=== PATIENT | female | born 1940 | race Caucasian/White ===

== ENCOUNTER 2017-03-29 11:23 | Observation (INO) | payer OTHER ==
[~2017-03-29] VITALS: Ht 172.7 cm; Wt 82.0 kg
--- NOTE | 2017-03-29 12:01 | DIAGNOSTIC IMAGING REPORT ---
CHEST ONE VIEW PORTABLE CLINICAL HISTORY: Atypical chest pain COMPARISON STUDY: 04/18/2013 FINDINGS: The cardiac and mediastinal contours are normal. There is no evidence of focal pulmonary consolidation. There is no evidence of failure. No pleural effusions are visualized.[ IMPRESSION: No active disease in the chest. Electronically signed by: Garrick Morrison M.D. 03/29/2017 12:00 PM Dictated Date/Time: 03/29/2017 12:00 PM
--- NOTE | 2017-03-29 12:30 | EMERGENCY ROOM VISIT NOTE ---
History Report prepared by Adamaris: Carlos Wilcox Under the Supervision of: Dr. Gaudencio Santana M.D. First contact with patient: 11:35 Chief Complaint: CHEST PAIN Stated Complaint: CHEST, LEFT ARM PAIN History of Present Illness The patient is a 77 year old female who presents to the Emergency Room with complaints of intermittent centralized chest pain beginning a few weeks ago. She states that her pain usually radiates into her back, and occasionally into her arms. She states that the pain rarely radiates into her legs. The patient denies any shortness of breath with her pain. She estimates that the pain is present for 2-10 minutes at a time. She states that her pain is often worsened with exertion and improved with rest. The patient rates her pain as an 8/10 in severity. She states that her episodes of pain have been occurring more frequently recently. She currently does not have pain her chest, but does have pain in her left arm. The patient is scheduled for a stress test in 10 days. She has no personal cardiac history. She notes that she aspirated something a little over a month ago and states that her current pain feels similar to her pain associated with aspiration. She does not believe she coughed up the foreign body. The patient has a history of hyperlipidemia and does not take medication for it. The patient took oral aspirin prior to arrival. Source of History: patient Onset: A few weeks ago Position: chest (centralized) Symptom Intensity: 2-10 minutes long, 8/10 in severity Timing: intermittent Modifying Factors (Worsening): exertion Modifying Factors (Relieving): rest Associated Symptoms: + back pain (radiating from chest), No SOB Note: The patient also complains of occasional pain radiation into her left arm and legs. Review of Systems See HPI for pertinent positives & negatives. A total of 10 systems reviewed and were otherwise negative. Past Medical & Surgical Medical Problems: (1) Herpes zoster (2) Hyperlipidemia Family History No pertinent family history stated. Social History Smoking Status: Never Smoker Marital Status: Occupation Status: retired Current/Historical Medications Scheduled Aspirin (Aspirin Chewable), 81 MG PO DAILY Coenzyme Q10 (Ubidecarenone) (Co Q-10), 1 CAP PO DAILY Fish Oil ([place]-3), 1 CAP PO DAILY Red Yeast Rice Extract (Red Yeast Rice), 1 CAP PO DAILY Scheduled PRN Aspirin (Aspirin Chewable), 324 MG PO UD PRN for CHEST PAIN Allergies Coded Allergies: No Known Allergies (Unverified , 03/29/17) Physical Exam Vital Signs Date Time Temp Pulse Resp B/P (MAP) Pulse Ox O2 Delivery O2 Flow Rate FiO2 03/29/17 13:30 81 16 144/65 98 03/29/17 12:33 72 16 144/94 98 Room Air 03/29/17 12:26 Room Air 03/29/17 12:18 72 03/29/17 11:25 36.7 85 18 183/96 95 Room Air Physical Exam GENERAL: Patient is in no acute distress. HEENT: No acute trauma, normocephalic atraumatic, mucous membranes moist, no nasal congestion, no scleral icterus. NECK: No stridor, no adenopathy, no meningismus, trachea is midline. LUNGS: Clear to auscultation bilaterally, no wheeze, no rhonchi, breath sounds equal. HEART: 2/6 systolic murmur. Regular rate and rhythm. ABDOMEN: Soft, nontender, bowel sounds positive, no hernias, no peritonitis. EXTREMITIES: No cyanosis or edema, full range of motion of all the joints without pain or difficulty, no signs for acute trauma. NEUROLOGIC: Oriented x 3, no acute motor or sensory deficits, no focal weakness. SKIN: No rash, no jaundice, no diaphoresis. Medical Decision & Procedures ER Provider Diagnostic Interpretation: X-ray results as stated below per interpretation by me and the radiologist: CHEST ONE VIEW PORTABLE FINDINGS: The cardiac and mediastinal contours are normal. There is no evidence of focal pulmonary consolidation. There is no evidence of failure. No pleural effusions are visualized.[ IMPRESSION: No active disease in the chest. Electronically signed by: Garrick Morrison M.D. Laboratory Results 03/29/17 12:25 03/29/17 12:25 Test 03/29/17 12:25 Red Blood Count 4.74 M/uL (4.2-5.4) Mean Corpuscular Volume 87.3 fL (80-100) Mean Corpuscular Hemoglobin 29.3 pg (25-34) Mean Corpuscular Hemoglobin Concent 33.6 g/dl (32-36) RDW Standard Deviation 41.2 fL (36.4-46.3) RDW Coefficient of Variation 12.8 % (11.5-14.5) Mean Platelet Volume 9.3 fL (7.4-10.4) Prothrombin Time 10.0 SECONDS (9.0-12.0) Prothromb Time International Ratio 0.9 (0.9-1.1) Activated Partial Thromboplast Time 24.3 SECONDS (21.0-31.0) Partial Thromboplastin Ratio 0.9 Anion Gap 6.0 mmol/L (3-11) Est Creatinine Clear Calc Drug Dose 54.5 ml/min Estimated GFR () 63.8 Estimated GFR (Non- 55.1 BUN/Creatinine Ratio 19.3 (10-20) Calcium Level 8.7 mg/dl (8.5-10.1) Total Bilirubin 0.4 mg/dl (0.2-1) Aspartate Amino Transf (AST/SGOT) 24 U/L (15-37) Alanine Aminotransferase (ALT/SGPT) 43 U/L (12-78) Alkaline Phosphatase 65 U/L (45-117) Troponin I < 0.015 ng/ml (0-0.045) Total Protein 7.0 gm/dl (6.4-8.2) Albumin 3.4 gm/dl (3.4-5.0) Globulin 3.6 gm/dl (2.5-4.0) Albumin/Globulin Ratio 0.9 (0.9-2) Lipase 270 U/L (73-393) Laboratory results reviewed by me. ECG Indication: chest pain Rate (beats per minute): 74 Rhythm: normal sinus Findings: other (LVH. Incomplete RBBB. ) ED Course 1136: The patient was evaluated in room B2. A complete history and physical exam was performed. 1350: Upon reexamination the patient is resting comfortably. I discussed results and treatment plan with the patient. She verbalizes agreement and understanding. The patient will be evaluated for further management. Medical Decision The patient is a 77 year old female who presents to the ED with complaints of intermittent chest pain beginning a few weeks ago. Differential diagnoses considered include cardiac ischemia, aortic dissection, PE, musculoskeletal pain , aspiration, anemia, and electrolyte imbalance. Blood Pressure Screening: Patient was found to have an elevated blood pressure and was referred to their primary doctor for recheck and further treatment. Medication Reconciliation: I attest that I have personally reviewed the patient' s current medication list. There is no leukocytosis or concerning anemia. No significant electrolyte abnormality, kidney failure or hepatitis. There is no coagulopathy. Chest x- ray does not show mediastinal widening, pneumonia or pneumothorax. EKG shows a normal sinus rhythm, no acute ischemia. Cardiac enzyme testing times one is not consistent with acute cardiac injury. The patient had already received oral aspirin, no additional aspirin was given. She was chest pain-free during our evaluation. The patient presents with exertional chest discomfort which is becoming more frequent. Today's episode actually occurred at rest. I discussed her case with the on-call purchasing officer, admission/observation was recommended. I talked with the patient and case management. The on-call hospitalist was consulted. Consults Time Called: 1315 Consulting Physician: Dr. Ruth -Cardiology Returned Call: [phone] Discussed the patient's case. Dr. Flores recommends that the patient be observed and evaluated as an inpatient. Additional Consults: Time Called: 1333 Consulted Physician: Rosalind Valderrama Returned Call: [phone] Additional Comments: Discussed the patient's case. The patient will be evaluated for further management. Impression Primary Impression: Precordial chest pain Scribe Attestation The scribe's documentation has been prepared under my direction and personally reviewed by me in its entirety. I confirm that the note above accurately reflects all work, treatment, procedures, and medical decision making performed by me. Departure Information Dispostion Being Evaluated By Hospitalist Referrals Josefina Sutton DO (PCP) Patient Instructions [facility]
[2017-03-29 12:45] LABS: HEMATOCRIT 41.4 % (37-47); MEAN CELL VOLUME 87.3 fL (80-100); MEAN CORPUSCULAR HEMOGLOBIN 29.3 pg (25-34); MEAN CORPUSCULAR HGB CONC 33.6 g/dl (32-36); MEAN PLATELET VOLUME 9.3 fL (7.4-10.4); PLATELET COUNT 230 K/uL (130-400); RED BLOOD COUNT 4.74 M/uL (4.2-5.4); WHITE BLOOD COUNT 4.41 K/uL (4.8-10.8)
[2017-03-29] MEDS ORDERED: ASPCH81X PO ×2 (12:47)
[2017-03-29] MEDS ORDERED: OMEG10007 PO (12:47)
[2017-03-29] MEDS ORDERED: REDCAP2 PO (12:47)
[2017-03-29] MEDS ORDERED: COEN75CA PO (12:47)
[2017-03-29 12:58] LABS: INR 0.9 (0.9-1.1); PARTIAL THROMBOPLASTIN RATIO 0.9
[2017-03-29 13:07] LABS: ALT/SGPT 43 U/L (12-78); BLOOD UREA NITROGEN 19 mg/dl (7-18); BUN/CREATININE RATIO 19.3 (10-20); CALCIUM 8.7 mg/dl (8.5-10.1); CARBON DIOXIDE 26 mmol/L (21-32); CHLORIDE 110 mmol/L (98-107); GLUCOSE 96 mg/dl (70-99); SODIUM 142 mmol/L (136-145)
[2017-03-29 13:12] LABS: ALB/GLOB RATIO 0.9 (0.9-2); ALKALINE PHOSPHATASE 65 U/L (45-117); AST/SGOT 24 U/L (15-37)
[2017-03-29] MEDS ORDERED: ONDANSETRON INJ 2 MG/ML 2 ML VIAL IV PRN (14:45)
[2017-03-29] MEDS ORDERED: IV FLUIDS COMPLETED PRN (15:00)
--- NOTE | 2017-03-29 16:05 | History and Physical ---
History & Physical Date & Time of Service: Mar 29, 2017 at 15:58 Chief Complaint: Hyperlipidemia, Precordial Chest Pain Primary Care Physician: Josefina Sutton DO History of Present Illness Source: patient, clinic records This is a 77 year old female with a PMH of hyperlipidemia, presents with a few month history of dyspnea on exertion and chest pressure with radiation to the back. She has been following with her primary care and was initially given a z- froilan for possible bronchitis. She did have an episode of aspiration on food in January. She states that that has not been an issue since then. She is concerned because her activity level has gone down considerably since this dyspnea and chest pressure began. She states she was scheduled for an outpatient stress test a few weeks from now, but was told by he primary care to come to the ER with chest pain. This morning, she had some chest pain and took four baby aspirin and came to the ER. She currently has no chest pain/dyspnea. Past Medical/Surgical History Medical Problems: (1) Herpes zoster Status: Resolved (2) Hyperlipidemia Status: Chronic Social History Smoking Status: Never Smoker Marital Status: Occupational Status: retired Multi-Drug Resistant Organisms History of MDRO: No Allergies Coded Allergies: No Known Allergies (Unverified , 03/29/17) Home Medications Scheduled Aspirin (Aspirin Chewable), 81 MG PO DAILY Coenzyme Q10 (Ubidecarenone) (Co Q-10), 1 CAP PO DAILY Fish Oil ([place]-3), 1 CAP PO DAILY Red Yeast Rice Extract (Red Yeast Rice), 1 CAP PO DAILY Scheduled PRN Aspirin (Aspirin Chewable), 324 MG PO UD PRN for CHEST PAIN Review of Systems Constitutional: No fever, No chills, No sweats, No weight loss, No weakness, No fatigue Respiratory: + dyspnea on exertion, No cough, No sputum, No wheezing, No shortness of breath, No dyspnea at rest, No hemoptysis Cardiovascular: + chest pain, No orthopnea, No edema, No palpitations Abdomen: No pain, No nausea, No vomiting, No diarrhea, No constipation Musculoskeletal: No joint pain, No muscle pain Genitourinary - Female: No dysuria, No urinary frequency, No urinary urgency Neurologic: No weakness, No numbness/tingling, No vertigo, No balance problems Psychiatric: No depression symptoms, No anxiety, No insomnia Endocrine: No fatigue Hematologic / Lymphatic: No abnormal bleeding/bruising Integumentary: No rash Allergic / Immunologic: No environmental allergies, No seasonal allergies Physical Exam Vital Signs Date Time Temp Pulse Resp B/P (MAP) Pulse Ox O2 Delivery O2 Flow Rate FiO2 03/29/17 15:21 36.7 99 19 153/99 96 03/29/17 15:15 99 19 03/29/17 15:10 69 14 03/29/17 15:05 74 24 03/29/17 15:00 71 18 03/29/17 14:39 71 16 153/99 96 Room Air 03/29/17 13:30 81 16 144/65 98 03/29/17 12:33 72 16 144/94 98 Room Air 03/29/17 12:26 Room Air 03/29/17 12:18 72 03/29/17 11:25 36.7 85 18 183/96 95 Room Air General Appearance: no apparent distress Head: normocephalic, atraumatic Eyes: normal inspection ENT: hearing grossly normal Neck: supple Respiratory/Chest: chest non-tender, lungs clear, normal breath sounds, no respiratory distress, no accessory muscle use Cardiovascular: regular rate, rhythm, no edema, no murmur Abdomen/GI: normal bowel sounds, non tender, soft Extremities/Musculoskelatal: normal inspection, no calf tenderness, normal capillary refill, no pedal edema, normal range of motion Neurologic/Psych: no motor/sensory deficits, alert, normal mood/affect Skin: normal color Lymphatic: no adenopathy Diagnostics Laboratory Results Results Past 24 Hours Test 03/29/17 12:25 Range/Units White Blood Count 4.41 4.8-10.8 K/uL Red Blood Count 4.74 4.2-5.4 M/uL Hemoglobin 13.9 12.0-16.0 g/dL Hematocrit 41.4 37-47 % Mean Corpuscular Volume 87.3 80-100 fL Mean Corpuscular Hemoglobin 29.3 25-34 pg Mean Corpuscular Hemoglobin Concent 33.6 32-36 g/dl RDW Standard Deviation 41.2 36.4-46.3 fL RDW Coefficient of Variation 12.8 11.5-14.5 % Platelet Count 230 130-400 K/uL Mean Platelet Volume 9.3 7.4-10.4 fL Prothrombin Time 10.0 9.0-12.0 SECONDS Prothromb Time International Ratio 0.9 0.9-1.1 Activated Partial Thromboplast Time 24.3 21.0-31.0 SECONDS Partial Thromboplastin Ratio 0.9 Sodium Level 142 136-145 mmol/L Potassium Level 4.0 3.5-5.1 mmol/L Chloride Level 110 98-107 mmol/L Carbon Dioxide Level 26 21-32 mmol/L Anion Gap 6.0 3-11 mmol/L Blood Urea Nitrogen 19 7-18 mg/dl Creatinine 1.00 0.60-1.20 mg/dl Est Creatinine Clear Calc Drug Dose 54.5 ml/min Estimated GFR () 63.8 Estimated GFR (Non- 55.1 BUN/Creatinine Ratio 19.3 10-20 Random Glucose 96 70-99 mg/dl Calcium Level 8.7 8.5-10.1 mg/dl Total Bilirubin 0.4 0.2-1 mg/dl Aspartate Amino Transf (AST/SGOT) 24 15-37 U/L Alanine Aminotransferase (ALT/SGPT) 43 12-78 U/L Alkaline Phosphatase 65 45-117 U/L Troponin I < 0.015 0-0.045 ng/ml Total Protein 7.0 6.4-8.2 gm/dl Albumin 3.4 3.4-5.0 gm/dl Globulin 3.6 2.5-4.0 gm/dl Albumin/Globulin Ratio 0.9 0.9-2 Lipase 270 73-393 U/L Diagnostic Radiology CHEST ONE VIEW PORTABLE CLINICAL HISTORY: Atypical chest pain COMPARISON STUDY: 04/18/2013 FINDINGS: The cardiac and mediastinal contours are normal. There is no evidence of focal pulmonary consolidation. There is no evidence of failure. No pleural effusions are visualized.[ IMPRESSION: No active disease in the chest. EKG Normal sinus rhythm Left axis deviation Incomplete right bundle branch block Minimal voltage criteria for LVH, may be normal variant Impression Assessment and Plan This is a 77 year old female with a PMH of hyperlipidemia presents with chest pain and dyspnea on exertion Chest Pain r/o ACS initial set of enzymes negative EKG with some left axis deviation will monitor in tele start aspirin 81mg daily start Lipitor (she was supposed to start this as outpatient) trend enzymes repeat EKG in AM check echo cardiology consultation for possible stress test in AM HLD started Lipitor, was to start this as outpatient check lipid panel in AM DVT ppx Lovenox FULL CODE VTE Prophylaxis VTE Risk Assessment Done? Y/N: Yes Risk Level: Low
[2017-03-29] MEDS: SODIUM CHLORIDE 0.9% 1000ML 1,000 ML IV SCH (16:12)
[2017-03-29 16:15] VITALS: BP 173/98; PULSE 71; TEMP 36.4; O2SAT 98; Ht 172.7 cm; Wt 82.0 kg
[2017-03-29] MEDS ORDERED: PANTOprazole SOD 40 MG TAB PO ONE (16:51)
--- NOTE | 2017-03-29 16:59 | Cardiology Consultation ---
Cardiology Consultation Requesting Physician: Dr. Santana Attending Export Clerk: Dr. Ruth History of Present Illness Patient is a 77 year old female seen for consultation regarding chest discomfort. Patient reports first episode of chest discomfort occurring on February 18. She describes a substernal pressure and tightness that occurred after eating. Pain was quite severe initially and slowly subsided on its own. Since then her pain has been sporadic occurring a few times per week. The pain occurs primarily after eating meals, however, she noticed it the other day when climbing a steep hill. She had to stop and discomfort subsided. She has also developed chest discomfort when lying flat at night. Currently developed some mild discomfort after her evening meal. Her cardiac enzymes are negative. There are no ischemic ECG changes. Previous exercise stress echocardiography performed in 2010 demonstrated an accelerated heart rate response to exercise as well as elevated blood pressure. There was evidence of posterior mitral valve prolapse and moderate mitral regurgitation. There is no evidence of inducible ischemia at that time. Blood pressure elevated since admission, however, patient denies history of hypertension. Recently diagnosed with dyslipidemia, however, declined statin therapy. No personal history of coronary disease, congestive heart failure, diabetes, or rheumatic fever as a child. Past Medical/Surgical History Problem List: Medical Problems: (1) Herpes zoster (2) Hyperlipidemia Family History Denies family history of premature coronary artery disease or sudden cardiac . Social History Smoking Status: Former Smoker Marital Status: Occupation: retired Review Of Systems General: The patient denies weight change, night sweats, fever, chills. Head: The patient denies headache and prior head trauma. Cardiovascular: The patient denies chest pain or chest discomfort, dyspnea on exertion, palpitations, PND, orthopnea, edema, spontaneous shortness of breath, syncope and near syncope. Pulmonary: The patient denies cough, wheeze, pleurisy, hemoptysis, sputum, and excessive snoring. Gastrointestinal: The patient denies nausea, vomiting, diarrhea, constipation, bloating, hematemesis, hematochezia, and abdominal pain. Skin: The patient denies diaphoresis and rash. Musculoskeletal: The patient denies joint pain, joint swelling, myalgia, back pain, neck pain and prior injuries. Neurological: The patient denies prior stroke and seizures Allergies Coded Allergies: No Known Allergies (Unverified , 03/29/17) Medications Reported Home Medications Medications Dose Route/Sig Max Daily Dose Days Date Category Aspirin Chewable (Aspirin) 81 Mg Chew 324 Mg PO UD PRN 03/29/17 Reported Aspirin Chewable (Aspirin) 81 Mg Chew 81 Mg PO DAILY 03/29/17 Reported Red Yeast Rice (Red Yeast Rice Extract) 600 Mg Cap 1 Cap PO DAILY 03/29/17 Reported [place]-3 (Fish Oil) 1 Ea Cap 1 Cap PO DAILY 03/29/17 Reported Co Q-10 (Coenzyme Q10 (Ubidecarenone)) 75 Mg Cap 1 Cap PO DAILY 03/29/17 Reported Physical Exam Vital Signs (Last 8hrs): Last 8 Hrs Date Time Temp Pulse Resp B/P (MAP) Pulse Ox O2 Delivery O2 Flow Rate FiO2 03/29/17 15:21 36.7 99 19 153/99 96 03/29/17 15:15 99 19 03/29/17 15:10 69 14 03/29/17 15:05 74 24 03/29/17 15:00 71 18 03/29/17 14:39 71 16 153/99 96 Room Air 03/29/17 13:30 81 16 144/65 98 03/29/17 12:33 72 16 144/94 98 Room Air 03/29/17 12:26 Room Air 03/29/17 12:18 72 03/29/17 11:25 36.7 85 18 183/96 95 Room Air General Appearance: Alert and Oriented x3. NAD. Head: Normocephalic Atraumatic. Eyes: PERRLA, EOMI, conjunctiva and sclera clear Neck: Supple. No carotid bruits noted. No JVD. No HJD. Respiratory: Breath sounds clear to auscultation bilaterally. No w/r/r. Cardiovascular: Reg rate and rhythm. S1 and S2 noted. 1/6 systolic ejection murmur heard best at the right second intercostal space without radiation. No rubs, gallops. PMI non displace. Abdomen: Normal bowel sounds, soft nontender. no abdominal bruits. Extremities: No edema, no clubbing or cyanosis. distal pulses 2/4 bilaterally. Neuro: No focal deficits. Psychiatric: Normal affect. Data Last 24 Hours Test 03/29/17 12:25 White Blood Count 4.41 K/uL Red Blood Count 4.74 M/uL Hemoglobin 13.9 g/dL Hematocrit 41.4 % Mean Corpuscular Volume 87.3 fL Mean Corpuscular Hemoglobin 29.3 pg Mean Corpuscular Hemoglobin Concent 33.6 g/dl RDW Standard Deviation 41.2 fL RDW Coefficient of Variation 12.8 % Platelet Count 230 K/uL Mean Platelet Volume 9.3 fL Prothrombin Time 10.0 SECONDS Prothromb Time International Ratio 0.9 Activated Partial Thromboplast Time 24.3 SECONDS Partial Thromboplastin Ratio 0.9 Sodium Level 142 mmol/L Potassium Level 4.0 mmol/L Chloride Level 110 mmol/L Carbon Dioxide Level 26 mmol/L Anion Gap 6.0 mmol/L Blood Urea Nitrogen 19 mg/dl Creatinine 1.00 mg/dl Est Creatinine Clear Calc Drug Dose 54.5 ml/min Estimated GFR () 63.8 Estimated GFR (Non- 55.1 BUN/Creatinine Ratio 19.3 Random Glucose 96 mg/dl Calcium Level 8.7 mg/dl Total Bilirubin 0.4 mg/dl Aspartate Amino Transf (AST/SGOT) 24 U/L Alanine Aminotransferase (ALT/SGPT) 43 U/L Alkaline Phosphatase 65 U/L Troponin I < 0.015 ng/ml Total Protein 7.0 gm/dl Albumin 3.4 gm/dl Globulin 3.6 gm/dl Albumin/Globulin Ratio 0.9 Lipase 270 U/L Imaging: Chest x-ray, no acute disease EKG: Sinus rhythm, incomplete right bundle branch block Telemetry reviewed: Sinus rhythm Assessment & Plan Final impression: 1. 77 year old female presents with chest discomfort with atypical features. At times her pain appears to be related to gastrointestinal issues and possible reflux, however, there is an exertional component which is more concerning. Further risk stratification is warranted. 2. Elevated BP - possibly situational. Will continue to monitor. 3. Dyslipidemia 4. MVP with moderate MR 5. IRBBB Plan / Recommendations: Cardiac enzymes will be cycled 3 sets. She'll be monitored on telemetry overnight. If cardiac enzymes are not significantly elevated we will plan resting 2-D transthoracic echo and exercise stress echocardiography in the a.m. We'll continue to monitor blood pressure closely. Proton pump inhibitor added this evening. Other medications will be continued as previously ordered. Thank you for allow me to take part in the care of your patient.
[2017-03-29] MEDS ORDERED: NURSING VERBAL MED ORDER ONE (17:45)
[2017-03-29] MEDS ORDERED: AMLODIPINE BESYLATE 5 MG TAB PO ONE (17:45)
[2017-03-29 19:27] VITALS: BP 153/89; PULSE 72; TEMP 36.4; O2SAT 95
[2017-03-29 20:42] VITALS: BP 171/98; PULSE 70; O2SAT 96
[2017-03-29] MEDS: ENOXAPARIN 40 MG/0.4 ML SYR SC SCH (20:44)
[2017-03-29 21:28] LABS: CKMB/CK RATIO 1.1 (0-3.0)
[2017-03-30] VITALS (11 sets, daily range): BP systolic 121–167; BP diastolic 65–93; PULSE 65–92; TEMP 36.3–36.7; O2SAT 94–97
[2017-03-30] MEDS: SODIUM CHLORIDE 0.9% 1000ML 1,000 ML IV SCH ×2 (03:49→15:31)
[2017-03-30 05:02] LABS: HEMATOCRIT 41.2 % (37-47); MEAN CORPUSCULAR HEMOGLOBIN 29.2 pg (25-34); MEAN CORPUSCULAR HGB CONC 32.8 g/dl (32-36); MEAN PLATELET VOLUME 9.6 fL (7.4-10.4); PLATELET COUNT 205 K/uL (130-400); RED BLOOD COUNT 4.63 M/uL (4.2-5.4); WHITE BLOOD COUNT 4.17 K/uL (4.8-10.8)
[2017-03-30 05:21] LABS: BLOOD UREA NITROGEN 18 mg/dl (7-18); BUN/CREATININE RATIO 19.8 (10-20); CALCIUM 8.2 mg/dl (8.5-10.1); CARBON DIOXIDE 29 mmol/L (21-32); CHLORIDE 111 mmol/L (98-107); CREATININE 0.92 mg/dl (0.60-1.20); GLUCOSE 87 mg/dl (70-99); POTASSIUM 4.1 mmol/L (3.5-5.1); SODIUM 145 mmol/L (136-145)
[2017-03-30 05:26] LABS: CHOLESTEROL 253 mg/dl (0-200); CHOLESTEROL/HDL RATIO 5.1; CKMB/CK RATIO 1.3 (0-3.0); HDL CHOLESTEROL 50 mg/dl; LDL CHOLESTEROL CALCULATED 157 mg/dl; TRIGLYCERIDES 232 mg/dl (0-150); VERY LOW DENSITY LIPOPROT CALC 46 mg/dl
[2017-03-30] MEDS: ASPIRIN 81 MG ECTAB PO SCH (07:55)
[2017-03-30] MEDS: AMLODIPINE BESYLATE 5 MG TAB PO SCH (07:56)
[2017-03-30] MEDS: ATORVASTATIN 40 MG TAB PO SCH (07:56)
[2017-03-30] MEDS: PANTOprazole SOD 40 MG TAB PO SCH (07:59)
[2017-03-30] MEDS: NITROGLYCERIN 0.4 MG SL PER TAB CHARGE SL PRN ×2 (11:04→11:16)
[2017-03-30] MEDS ORDERED: PERFLUTREN LIPID MICROSPHERE (DEFINITY) IV ONE (11:15)
--- NOTE | 2017-03-30 11:42 | ECHOCARDIOGRAM REPORT ---
*NOTICE TO RECEIVING CONSTITUTION PARTY AGENCY This information is strictly Confidential and protected under [place] law. [place] law prohibits you from making any further disclosure of this information unless further disclosure is expressly permitted by the written consent of the person to whom it pertains or is authorized by law. A general authorization for the release of medical or other information is not sufficient for this purpose. Hospital accepts no responsibility if the information is made available to any other person, INCLUDING THE PATIENT. Interpretation Summary * Name: JACK HERNANDEZ Study Date: 03/30/2017 07:02 AM BP: 127/77 mmHg * Patient Location: C.2T\S\S232\S\1 HR: 67 * : 1940 (M/d/yyyy) Gender: Female Height: 68 in * Age: 77 yrs Ethnicity: CA Weight: 179 lb * Ordering Physician: Sergey Ruth * Referring Physician: Josefina Sutton * Performed By: Leigh Garza RCS * * Reason For Study: CHEST PAIN * BSA: 1.9 m2 * The study was technically adequate. * There is no comparison study available. * -- Conclusions -- * Left ventricular systolic function is normal. * Ejection Fraction = 60-65%. * There is mild concentric left ventricular hypertrophy. * Grade I diastolic dysfunction, (abnormal relaxation pattern). * The left atrium is moderately dilated. * There is mild mitral annular calcification. * There is mild to moderate mitral regurgitation. * There is trace tricuspid regurgitation. Procedure Details * A complete two-dimensional transthoracic echocardiogram was performed (2D, M-mode, Doppler and color flow Doppler). Left Ventricle * The left ventricle is normal in size. * There is no thrombus. * There is mild concentric left ventricular hypertrophy. * Left ventricular systolic function is normal. * Ejection Fraction = 60-65%. * The left ventricular wall motion is normal. Right Ventricle * The right ventricle is normal size. * The right ventricular systolic function is normal as assessed by tricuspid annular plane systolic excursion (TAPSE) (normal >1.5 cm). Atria * The left atrium is moderately dilated. * Right atrial size is normal. * There is no evidence of atrial septal defect, but resolution does not allow assessment for a patent foramen ovale. Mitral Valve * There is mild mitral annular calcification. * The mitral valve leaflets appear thickened, but open well. * There is no mitral valve stenosis. * There is mild to moderate mitral regurgitation. Tricuspid Valve * The tricuspid valve is normal. * There is no tricuspid stenosis. * There is trace tricuspid regurgitation. * Doppler findings do not suggest pulmonary hypertension. Aortic Valve * The aortic valve is trileaflet. * Aortic stenosis is absent. * There is no significant aortic regurgitation. Pulmonic Valve * The pulmonary valve is not well seen, but the Doppler examination is normal without significant regurgitation or stenosis. Great Vessels * The aortic root and proximal ascending aorta are normal sized. Pericardium/Pleural * There is no pericardial effusion. Great Vessels * Normal inferior vena cava diameter and respiratory variation suggests normal central venous pressure. Left Ventricular Diastolic Function * Grade I diastolic dysfunction, (abnormal relaxation pattern). MMode 2D Measurements and Calculations IVSd 1.4 cm IVSs 1.8 cm LVIDd 4.0 cm LVIDs 2.6 cm LVPWd 1.4 cm LVPWs 1.5 cm IVS/LVPW 0.99 FS 36.4 % EDV(Teich) 71.5 ml ESV(Teich) 23.8 ml EF(Teich) 66.7 % EDV(cubed) 65.8 ml ESV(cubed) 16.9 ml EF(cubed) 74.3 % % IVS thick 30.3 % % LVPW thick 8.0 % LV mass(C)d 216.1 grams LV mass(C)dI 110.9 grams/m\S\2 LV mass(C)s 161.3 grams LV mass(C)sI 82.7 grams/m\S\2 SV(Teich) 47.7 ml SI(Teich) 24.5 ml/m\S\2 SV(cubed) 48.9 ml SI(cubed) 25.1 ml/m\S\2 Ao root diam 3.1 cm Ao root area 7.5 cm\S\2 LA dimension 4.5 cm LA/Ao 1.4 LVOT diam 2.0 cm LVOT area 3.0 cm\S\2 LVAd ap4 28.5 cm\S\2 LVLd ap4 7.7 cm EDV(MOD-sp4) 83.9 ml EDV(sp4-el) 89.8 ml LVAs ap4 16.8 cm\S\2 LVLs ap4 6.3 cm ESV(MOD-sp4) 38.0 ml ESV(sp4-el) 37.8 ml EF(MOD-sp4) 54.6 % EF(sp4-el) 57.8 % LVAd ap2 27.3 cm\S\2 LVLd ap2 7.0 cm EDV(MOD-sp2) 85.6 ml EDV(sp2-el) 90.7 ml LVAs ap2 13.8 cm\S\2 LVLs ap2 5.5 cm ESV(MOD-sp2) 28.7 ml ESV(sp2-el) 29.5 ml EF(MOD-sp2) 66.5 % EF(sp2-el) 67.5 % LVLd %diff -10.19 % EDV(MOD-bp) 89.8 ml LVLs %diff -15.03 % ESV(MOD-bp) 35.1 ml EF(MOD-bp) 60.9 % SV(MOD-sp4) 45.8 ml SI(MOD-sp4) 23.5 ml/m\S\2 SV(MOD-sp2) 56.9 ml SI(MOD-sp2) 29.2 ml/m\S\2 SV(MOD-bp) 54.6 ml SI(MOD-bp) 28.0 ml/m\S\2 SV(sp4-el) 51.9 ml SI(sp4-el) 26.6 ml/m\S\2 SV(sp2-el) 61.2 ml SI(sp2-el) 31.4 ml/m\S\2 Doppler Measurements and Calculations MV E max alondra 128.9 cm/sec MV A max alondra 135.9 cm/sec MV E/A 0.95 MV P1/2t max alondra 125.9 cm/sec MV P1/2t 92.6 msec MVA(P1/2t) 2.4 cm\S\2 MV dec slope 398.4 cm/sec\S\2 MV dec time 0.24 sec Ao V2 max 137.8 cm/sec Ao max PG 7.6 mmHg Ao max PG (full) 2.1 mmHg MICHAEL(V,A) 2.5 cm\S\2 MICHAEL(V,D) 2.5 cm\S\2 AI max alondra 416.0 cm/sec AI max PG 69.2 mmHg AI dec slope 213.5 cm/sec\S\2 AI P1/2t 570.6 msec LV V1 max PG 5.5 mmHg LV V1 max 117.0 cm/sec MR max alondra 533.3 cm/sec MR max PG 113.8 mmHg PA V2 max 102.4 cm/sec PA max PG 4.2 mmHg TR max alondra 266.5 cm/sec
--- NOTE | 2017-03-30 13:27 | Progress Note ---
Internal Med Progress Note Date of Service: Mar 30, 2017. Provider Documentation: SUBJECTIVE: Patient developed chest pain during stress test. For cardiac cath today Denies any chest pain now. No SOB, cough, fever, chills, edema, nausea, vomiting. OBJECTIVE: Vital Signs-as noted below Exam: General-AAOX3, no distress Neck-Supple, No JVD Lungs-AEBE, no wheezing, crackles Heart-S1, S2 normal, no murmurs Extremities-No edema Lab data as noted below. ASSESSMENT & PLAN: This is a 77 year old female with a PMH of hyperlipidemia presents with chest pain and dyspnea on exertion. CHEST PAIN : -Patient presents with chest pain few episodes in past few weeks, decreased activity tolerance noted. -EKG- no acute changes, Troponin x 3 negative -S/P Stress Echo- could not be completed as developed angina. For Cardiac cath today -Continue with ASA, Lipitor -Appreciate cardiology inputs HLD started Lipitor, was to start this as outpatient -Lipid panel- LDL 157 DVT ppx Lovenox SQ FULL CODE DISPOSITION For cardiac cath today Vital Signs: Date Time Temp Pulse Resp B/P (MAP) Pulse Ox O2 Delivery O2 Flow Rate FiO2 03/30/17 12:36 Room Air 03/30/17 08:00 Room Air 03/30/17 08:00 36.5 70 18 167/87 (113) 97 Room Air 03/30/17 04:00 Room Air 03/30/17 03:54 36.4 68 15 127/77 (94) 97 Room Air 03/30/17 00:13 36.5 65 17 129/79 (96) 97 Room Air 03/30/17 00:02 Room Air 03/29/17 20:42 70 18 171/98 (122) 96 Room Air 03/29/17 20:00 Room Air 03/29/17 19:27 36.4 72 16 153/89 (110) 95 Room Air 03/29/17 16:15 36.4 71 18 173/98 98 Room Air 03/29/17 15:21 36.7 99 19 153/99 96 03/29/17 15:15 99 19 03/29/17 15:10 69 14 03/29/17 15:05 74 24 03/29/17 15:00 71 18 03/29/17 14:39 71 16 153/99 96 Room Air 03/29/17 13:30 81 16 144/65 98 Lab Results: Results Past 24 Hours Test 03/29/17 20:39 03/30/17 04:30 Range/Units Total Creatine Kinase 90 76 26-192 U/L Creatine Kinase MB 1.0 1.0 0.5-3.6 ng/ml Creatine Kinase MB Ratio 1.1 1.3 0-3.0 Troponin I < 0.015 < 0.015 0-0.045 ng/ml White Blood Count 4.17 4.8-10.8 K/uL Red Blood Count 4.63 4.2-5.4 M/uL Hemoglobin 13.5 12.0-16.0 g/dL Hematocrit 41.2 37-47 % Mean Corpuscular Volume 89.0 80-100 fL Mean Corpuscular Hemoglobin 29.2 25-34 pg Mean Corpuscular Hemoglobin Concent 32.8 32-36 g/dl RDW Standard Deviation 41.4 36.4-46.3 fL RDW Coefficient of Variation 12.9 11.5-14.5 % Platelet Count 205 130-400 K/uL Mean Platelet Volume 9.6 7.4-10.4 fL Sodium Level 145 136-145 mmol/L Potassium Level 4.1 3.5-5.1 mmol/L Chloride Level 111 98-107 mmol/L Carbon Dioxide Level 29 21-32 mmol/L Anion Gap 5.0 3-11 mmol/L Blood Urea Nitrogen 18 7-18 mg/dl Creatinine 0.92 0.60-1.20 mg/dl Est Creatinine Clear Calc Drug Dose 59.2 ml/min Estimated GFR () 70.6 Estimated GFR (Non- 60.9 BUN/Creatinine Ratio 19.8 10-20 Random Glucose 87 70-99 mg/dl Calcium Level 8.2 8.5-10.1 mg/dl Triglycerides Level 232 0-150 mg/dl Cholesterol Level 253 0-200 mg/dl HDL Cholesterol 50 mg/dl LDL Cholesterol, Calculated 157 mg/dl VLDL Cholesterol, Calculated 46 mg/dl Cholesterol/HDL Ratio 5.1
--- NOTE | 2017-03-30 13:28 | Cardiology Follow-Up ---
Subjective General Date of Service: Mar 30, 2017. Pt evaluation today including: conversation w/ patient, conversation w/ family , physical exam, chart review, lab review, review of studies, conversation w/ senior science consultant, review of inpatient medication list History of Present Illness The patient is a 77 year old female seen in follow-up after stress testing. Exercise stress echo did not demonstrate echocardiographic or ECG evidence of ischemia, however, patient developed classic anginal symptoms with exertion which persisted into late recovery. Her discomfort was ultimately relieved with sublingual nitroglycerin. Currently pain-free. Allergies Coded Allergies: No Known Allergies (Unverified , 03/29/17) Social History Smoking Status: Former Smoker Hx Tobacco Use In Past Year?: No Hx Alcohol Use - Type And Amou: Yes (vodka and wine 1-2 drinks daily ) Hx Substance Use - Type And Am: No Problem List Medical Problems: (1) Precordial chest pain Status: Acute Review of Systems Respiratory: + dyspnea on exertion, No cough, No sputum, No wheezing, No shortness of breath, No dyspnea at rest, No hemoptysis Cardiac: + chest pain, No orthopnea, No PND, No edema, No claudication Physical Exam Vital Signs Last Vital Signs Documentation Date Time Temp Pulse Resp B/P (MAP) Pulse Ox O2 Delivery O2 Flow Rate FiO2 03/30/17 12:36 Room Air 03/30/17 08:00 36.5 70 18 167/87 (113) 97 Physical Exam Constitutional: General Apperance: heathly-appearing, well-nourished Level of Distress: NAD Ambulation: ambulating normally Head: normocephalic, atraumatic ENMT: normal ENT inspection Neck: supple, trachea midline Lungs: Auscultation: breath sounds normal, no wheezing, no rales/crackles, no rhonchi Cardiovascular: Heart Auscultation: RRR, normal S1, normal S2, no murmurs, no rubs, no gallops Peripheral Pulses: Radial Pulse: normal on the right Femoral Pulse: normal on the right Abdomen: Bowel Sounds: normal Inspection & Palpation: soft, non-distended, no tenderness, guarding & rebound Musculoskeletal: normal, normal strength (5/5 throughout) Extremities: no cyanosis, no edema, no clubbing, no ulcers Neurologic: Gait & Station: pertinent finding (no focal deficit) Cranial Nerves: grossly intact Assessment and Plan Assessment and Plan 1. 77 year old female presents with chest discomfort with atypical features. Exercise stress echocardiography did not demonstrate echocardiographic or ECG evidence of ischemia, however, patient developed high risk symptoms including exertional angina which persisted into late recovery. Her discomfort was relieved with sublingual nitroglycerin. 2. Newly diagnosed hypertension with mild concentric left ventricular hypertrophy on echocardiogram 3. Dyslipidemia 4. Mild to moderate mitral regurgitation with moderate mitral annular calcification and no overt evidence of mitral valve prolapse on current echocardiographic study. 5. IRBBB Plan / Recommendations: I long discussion with the patient and her daughter at bedside regarding the results of the stress echocardiogram. Patient's exertional symptoms are concerning for angina and possibly obstructive coronary artery disease. Risk versus benefit of cardiac catheterization with coronary angiography reviewed at length. Patient agreeable to coronary angiography and left heart catheterization at [facility]. She is also agreeable to percutaneous intervention if indicated. She is a drug-eluting stent candidate. Further recommendations pending results of catheterization. Laboratory Results Last 24 Hours Test 03/29/17 20:39 03/30/17 04:30 Total Creatine Kinase 90 U/L 76 U/L Creatine Kinase MB 1.0 ng/ml 1.0 ng/ml Creatine Kinase MB Ratio 1.1 1.3 Troponin I < 0.015 ng/ml < 0.015 ng/ml White Blood Count 4.17 K/uL Red Blood Count 4.63 M/uL Hemoglobin 13.5 g/dL Hematocrit 41.2 % Mean Corpuscular Volume 89.0 fL Mean Corpuscular Hemoglobin 29.2 pg Mean Corpuscular Hemoglobin Concent 32.8 g/dl RDW Standard Deviation 41.4 fL RDW Coefficient of Variation 12.9 % Platelet Count 205 K/uL Mean Platelet Volume 9.6 fL Sodium Level 145 mmol/L Potassium Level 4.1 mmol/L Chloride Level 111 mmol/L Carbon Dioxide Level 29 mmol/L Anion Gap 5.0 mmol/L Blood Urea Nitrogen 18 mg/dl Creatinine 0.92 mg/dl Est Creatinine Clear Calc Drug Dose 59.2 ml/min Estimated GFR () 70.6 Estimated GFR (Non- 60.9 BUN/Creatinine Ratio 19.8 Random Glucose 87 mg/dl Calcium Level 8.2 mg/dl Triglycerides Level 232 mg/dl Cholesterol Level 253 mg/dl HDL Cholesterol 50 mg/dl LDL Cholesterol, Calculated 157 mg/dl VLDL Cholesterol, Calculated 46 mg/dl Cholesterol/HDL Ratio 5.1
[2017-03-30] MEDS ORDERED: NiCARDipine HCL INJ 2.5 MG/ML 10 ML AMP ONE (13:33)
[2017-03-30] MEDS ORDERED: HEPARIN SOD (PORCINE) 1000 UNIT/ML 10 ML VIAL ONE (13:33)
[2017-03-30] MEDS ORDERED: NITROGLYCERIN/D5W 100MCG/ML 20ML SYR ONE (13:34)
[2017-03-30] MEDS ORDERED: MIDAZOLAM HCL 1 MG/ML 2ML VIAL ONE (13:34)
[2017-03-30] MEDS ORDERED: FENTANYL CITRATE INJ 50 MCG/1 ML 2 ML VIAL ONE (13:34)
--- NOTE | 2017-03-30 14:38 | Procedure Note ---
Pre-Mod Sedation Assessment General Date of Moderate Sedation: Mar 30, 2017. Vital Signs: Vital Signs Past 12 Hours Date Time Temp Pulse Resp B/P (MAP) Pulse Ox O2 Delivery O2 Flow Rate FiO2 03/30/17 12:36 Room Air 03/30/17 08:00 Room Air 03/30/17 08:00 36.5 70 18 167/87 (113) 97 Room Air 03/30/17 04:00 Room Air 03/30/17 03:54 36.4 68 15 127/77 (94) 97 Room Air Review Cardiovascular: regular rate, rhythm, no edema, no gallop Abdomen: normal bowel sounds, non tender, soft Lungs: chest non-tender, lungs clear Pre-Sedation Airway Assessment Oral Cavity: WNL Smoking Status: Former Smoker Mallampati Classification: Class II ASA Classification: Class III Procedure Planning Contraindications-for Mod Sed: None Yes Notes The planned sedation has been discussed with the patient and consent obtained. I have identified the patient, determined the appropriateness of sedation and have assessed the patient immediately prior to the procedure. All medicine(s) and interventions are by my order.
--- NOTE | 2017-03-30 14:40 | Procedure Note ---
Post-Mod Sedation Assessment General Date of Moderate Sedation Mar 30, 2017. Vital Signs: Vital Signs Past 12 Hours Date Time Temp Pulse Resp B/P (MAP) Pulse Ox O2 Delivery O2 Flow Rate FiO2 03/30/17 12:36 Room Air 03/30/17 08:00 Room Air 03/30/17 08:00 36.5 70 18 167/87 (113) 97 Room Air 03/30/17 04:00 Room Air 03/30/17 03:54 36.4 68 15 127/77 (94) 97 Room Air Review - Discharge Criteria Vital Signs Stable: Yes Alert/Oriented/Conversant: Yes Returned to Baseline Mental St: Yes Nausea Absent/Minimal: Yes Pain/Discomfort/Absent/Minimal: Yes Normal/Baseline Respirations: Yes Active Bleeding?: No Pt Received D/C Instructions: No Prescriptions Given: None Specific Proced. D/C Criteria Distal Pulses Present (Cardiac: Yes Groin site assessed-Card Cath: N/A Voided Prior To Discharge: N/A Discharged Patients Adult Escort/Transportation: N/A
[2017-03-30] MEDS ORDERED: CLOPIDOGREL BISULFATE 300 MG TAB PO ONE (14:49)
--- NOTE | 2017-03-30 14:52 | Cardiac Catheterization ---
Procedure Note Procedure Date Mar 30, 2017. Pre-Procedure Diagnosis Angina AUC Score 7 Post-Procedure Diagnosis Severe CAD Procedure(s) Performed Coronary Angiography, Left Heart Cath Ballistic Expert Dr. Ruth Pulmonary Physical Therapist(s) Jonathan TOOLS ADMINISTRATOR Estimated Blood Loss 5cc Medication(s) Fentanyl, Heparin, Nitroglycerin, Norepinephrine, Versed, Lidocaine 1% Summary of Findings 95% mid LAD Hemodynamics Rest Ao: 105/64/83 Final Ao: 132/69/101 LV: 132/7/13 Recommendations PCI without planned CABG Specimens None Radiation Exposure (mGy) 905 Contrast (mls) 30 Anesthesia Moderate sedation. Start 1345. End 1415. Sedation MICA Gonzalez. Procedural Complication(s) None Disposition Patient remained in flue dust laborer for PCI to LAD ACC Data Cardiac Status Clinical evaluation leading to the procedure: exertional and nonexertional chest discomfort. Angina reproduced during stress test and relieved with SL nitro, however, no ECg or echo evidence of ischemia. CAD Presntation: Unstable angina Anginal Classification: CCS II Heart Failure: No Cardiogenic Shock w/in 24Hrs: No Cardiac Arrest w/in 24Hrs: No Imaging studies past 6 months: Yes Stress studies past 6 months: Yes Stress Echocardiogram: Yes - Indeterminant Coronary Anatomy Dominant: Right Left Main (% Stenosis): Normal LAD (% Stenosis): Ostial (20%), Proximal (10%), Mid (95% with JUDIE 2 flow), Distal (10%) D1 (% Stenosis): Ostial (0%), Proximal (0%), Mid (10%), Distal (10%) Circumflex (% Stenosis): Ostial (0%), Proximal (10%), Mid (10%), Distal (20%) OM1 (% Stenosis): Normal OM2 (% Stenosis): Normal L PL1 (% Stenosis): Normal RCA (% Stenosis): Ostial (0%), Proximal (30%), Mid (20%), Distal (0%) R PDA (% Stenosis): Normal R PL1 (% Stenosis): Proximal (10%), Mid (0%), Distal (0%) AM (% Stenosis): Normal Diagnostic Status: Elective Closure Device Percutaneous Entry Location: Radial Closure Device: Radial Band Recommendations: PCI without planned CABG Intraprocedure Events Significant Dissection: No Perforation: No
[2017-03-30] MEDS ORDERED: ONDANSETRON INJ 2 MG/ML 2 ML VIAL IV PRN (15:15)
--- NOTE | 2017-03-30 17:17 | EXERCISE STRESS ECHO ---
*NOTICE TO RECEIVING REPUBLICAN AGENCY This information is strictly Confidential and protected under [place] law. [place] law prohibits you from making any further disclosure of this information unless further disclosure is expressly permitted by the written consent of the person to whom it pertains or is authorized by law. A general authorization for the release of medical or other information is not sufficient for this purpose. Hospital accepts no responsibility if the information is made available to any other person, INCLUDING THE PATIENT. Interpretation Summary * Name: JACK HERNANDEZ Study Date: 03/30/2017 10:24 AM BP: 146/86 mmHg * Patient Location: .2T\S\S232\S\1 HR: 69 * : 1940 (M/d/yyyy) Gender: Female Height: 68 in * Age: 77 yrs Ethnicity: CA Weight: 179 lb * Ordering Physician: Sergey Ruth * Referring Physician: Josefina Sutton * Performed By: Leigh Garza RCS * * Reason For Study: CHEST PAIN * BSA: 1.9 m2 * No ECG or echocardiographic evidence of exercise induced ischemia, however, patient developed anginal symptoms during stage 2 of exercise. Chest discomfort persisted more than 9 minutes into recovery and was relieved with one SL NTG. High risk features suggesting obstructive CAD despite unremarkable ECG and echo images. Procedure Details * ECHOEX, CPT #92140 * A contrast injection of Definity was performed to improve assessment of LV function. * Contrast was injected into an intravenous site in the left arm. * One vial of Definity ultrasound contrast was diluted in normal saline to a total volume of 10 ml. A total of '4' ml of solution was administered during imaging. * Lot # [id number] of Definity utilized for procedure. * Expiration date APR 30. * The attending nurse who injected the contrast agent was ONEIDA MEJIA CPL, RN. Left Ventricle * Left ventricular systolic function is normal. * Resting wall motion: Normal. Stress wall motion: Appropriate increase in Left ventricular systolic function and decrease in cavity size. No stress induced segmental wall motion abnormalities. * The left ventricular ejection fraction increases normally with stress. The left ventricular end-systolic cavity size reduces post-stress (normal response). The left ventricular wall motion with stress is normal. Stress Parameters * The baseline ECG displays normal sinus rhythm. * Stress ECG: No ST changes. No arrhythmias. * The stress portion of this study was personally supervised by the undersigned interpreting physician. * Rest heart rate was '69' BPM. * Rest blood pressure was '146/86' * Maximum heart rate achieved was 139 bpm. * Maximum heart rate was 95 % of maximum age-predicted heart rate. * Maximum blood pressure was '180/103' * Total exercise time was '05:33' * Maximum exercise MET level achieved was '7.00' METS * Maximum treadmill speed was '2.50' miles per hour. * Maximum treadmill elevation was '12.00'% grade. * Exercise was terminated due to 'chest pain' * Normal blood pressure response to exercise. * Normal heart rate response to exercise. Below average exercise tolerance.
--- NOTE | 2017-03-30 17:40 | Cardiac Catheterization ---
Procedure Note Procedure Date Mar 30, 2017. Pre-Procedure Diagnosis Angina, Positive Stress Test AUC Score 7 Post-Procedure Diagnosis Severe CAD, Successful PCI Procedure(s) Performed Coronary Angiography, Left Heart Cath, Drug Eluting Stent Washing Machine Assembler Naldo Balloon Tester(s) Jonathan Estimated Blood Loss 15 Medication(s) Fentanyl, Heparin, Nitroglycerin, Versed Summary of Findings Indication: Angina, Abnormal stress test Access: 6Fr Slender Right Radial Artery Catheters: EBU 3.5 guide Findings: For full details from patient's coronary angiography see cath report dictated by Dr. Ruth from earlier today. Briefly patient found to have a 95% mid LAD lesion for which PCI recommended. -- PCI -- Antithrombotic therapy: Heparin, Clopidogrel Procedure: LM cannulated with EBU 3.5 guide Palliative Care Nurse Practitioner 50 wire passed across lesion into distal vessel. Lesion almost occlusive with wire placement. Mid LAD lesion predilated with 2.5 compliant balloon Dilated lesion stented with 3.0 x 28 Xience BRAD Stent post-dilated with 3.5 noncompliant balloon IC vasodilators administered for spasm Post procedure JUDIE 3 flow, stent well expanded with minimal residual stenosis and no apparent cardiac complications. Arterial Closure: TR Band Summary: 1. Successful PCI of mid LAD with 3.0 x 28 Xience BRAD (post-dilated to 3.5) Recommendations: To PCU for continued monitoring Loaded with Clopidogrel 600 mg in label stamper Continue dual-antiplatelet therapy with ASA/Clopidogrel for 1 year Continue statin, and ASCVD risk factor modification per Dr. Ruth Consult cardiac Rehab Hemodynamics Rest Ao: -- Final Ao: -- LV: -- Recommendations PCI without planned CABG Specimens None Radiation Exposure (mGy) -- Contrast (mls) -- Anesthesia Moderate Procedural Complication(s) None Disposition PCU ACC Data Cardiac Status Clinical evaluation leading to the procedure CAD Presntation: Positive Stress Test Diagnostic Physician's Name: Sergey Ruth DO Status: Elective Closure Device Percutaneous Entry Location: Radial Closure Device: Radial Band Recommendations: PCI without planned CABG PCI Indication: Unstable Angina, + Stress Test Lesion Segment Name: Mid LAD Culprit Artery: Yes Stenosis Prior to Rx (%): 95 Chronic Total Occlusion: No IVUS: No FFR: No Pre-Procedure JUDIE Flow: 3 Previously Treated Lesion: No Lesion Complexity: Non-High/Non-C Lesion Length (mm): 20 Thrombus Present: No Bifurcation Lesion: No Guidewire Across Lesion: Yes Guidewire: Stenosis Post-Procedure (%): 0 Post-Procedure JUDIE Flow: 3 Device(s) Deployed: Yes Intraprocedure Events Significant Dissection: No Perforation: No
[2017-03-30] MEDS: ENOXAPARIN 40 MG/0.4 ML SYR SC SCH (21:06)
[2017-03-30] MEDS ORDERED: ACETAMINOPHEN 325 MG TAB PO PRN (21:15)
--- NOTE | 2017-03-30 21:36 | DIAGNOSTIC IMAGING REPORT ---
CT HEAD WITHOUT CONTRAST (CT) CLINICAL HISTORY: Severe headache COMPARISON STUDY: No previous studies for comparison. TECHNIQUE: Axial CT of the brain is performed from the vertex to the skull base. IV contrast was not administered for this examination. CT DOSE: 537.48 mGy.cm FINDINGS: No intra or extra-axial mass lesions are visualized. There is no CT evidence of acute cortical infarction. There is no evidence of midline shift. There is no acute hemorrhage. No calvarial fractures are visualized. There are moderate white matter hypodensities likely on a small vessel basis. There is a slightly more focal hypodensity within the right centrum semiovale. While likely also a small vessel basis, if there is clinical concern over other intracerebral pathology, an MRI could be obtained in follow-up There is no evidence of pathologic ventricular dilatation. There is no evidence of acute sinusitis IMPRESSION: 1. Moderate white matter hypodensity, likely a small vessel basis 2. No evidence of acute hemorrhage Electronically signed by: Garrick Morrison M.D. 03/30/2017 9:35 PM Dictated Date/Time: 03/30/2017 9:32 PM
[2017-03-31 03:25] VITALS: BP 144/87; PULSE 71; TEMP 36.7; O2SAT 95
[2017-03-31] MEDS: SODIUM CHLORIDE 0.9% 1000ML 1,000 ML IV SCH ×2 (05:50→11:15)
[2017-03-31 06:32] LABS: BASO % 0.2 %; BASO ABS # 0.01 K/uL (0-0.2); COMPLETE YES; EOS % 1.7 %; HEMATOCRIT 38.5 % (37-47); IG% 0.2 %; LYMPH % 35.4 %; LYMPH ABS # 1.69 K/uL (1.2-3.4); MEAN CELL VOLUME 87.3 fL (80-100); MEAN CORPUSCULAR HEMOGLOBIN 29.5 pg (25-34); MEAN CORPUSCULAR HGB CONC 33.8 g/dl (32-36); MEAN PLATELET VOLUME 9.3 fL (7.4-10.4); MONO % 10.7 %; NEUT % 51.8 %; PLATELET COUNT 210 K/uL (130-400); RED BLOOD COUNT 4.41 M/uL (4.2-5.4); WHITE BLOOD COUNT 4.77 K/uL (4.8-10.8)
[2017-03-31 06:56] LABS: BUN/CREATININE RATIO 13.4 (10-20); CALCIUM 8.2 mg/dl (8.5-10.1); CREATININE 0.92 mg/dl (0.60-1.20); POTASSIUM 3.8 mmol/L (3.5-5.1)
[2017-03-31] MEDS: AMLODIPINE BESYLATE 5 MG TAB PO SCH (07:30)
[2017-03-31] MEDS: ATORVASTATIN 40 MG TAB PO SCH (07:30)
[2017-03-31] MEDS: PANTOprazole SOD 40 MG TAB PO SCH (07:30)
[2017-03-31] MEDS: ASPIRIN 81 MG ECTAB PO SCH (07:30)
[2017-03-31 08:28] VITALS: BP 145/82; PULSE 74; TEMP 36.8; O2SAT 96
[2017-03-31] MEDS ORDERED: CLOPIDOGREL BISULFATE 75 MG TAB PO SCH (09:00)
--- NOTE | 2017-03-31 11:05 | Progress Note ---
Internal Med Progress Note Date of Service: Mar 31, 2017. Provider Documentation: SUBJECTIVE: Patient is doing well post cath No c/o chest pain, SOB. Tele - no events OBJECTIVE: Vital Signs-as noted below Exam: General-AAOX3, no distress Neck-Supple, No JVD Lungs-AEBE, no wheezing, crackles Heart-S1, S2 normal, no murmurs Extremities-No edema. S/P right radial cardiac cath rn data as noted below. ASSESSMENT & PLAN: This is a 77 year old female with a PMH of hyperlipidemia presents with chest pain and dyspnea on exertion. UNSTABLE ANGINA -Patient presented with chest pain few episodes in past few weeks, decreased activity tolerance, underwent stress echocardiogram here but could got angina and thus went for cardiac cath same day 03/30/17 -S/P Cardiac cath on 03/30- LAD -95% stenosis- One BRAD placed. Doing well post cath. -EKG- no acute changes, Troponin x 3 negative -Continue with ASA, Plavix, Statin HLD started Lipitor, was to start this as outpatient -Lipid panel- LDL 157 DVT ppx Lovenox SQ FULL CODE DISPOSITION Eager to be discharged. Awaiting cardiology clearance Vital Signs: Date Time Temp Pulse Resp B/P (MAP) Pulse Ox O2 Delivery O2 Flow Rate FiO2 03/31/17 08:28 36.8 74 20 145/82 (103) 96 Room Air 03/31/17 08:00 Room Air 03/31/17 04:00 Room Air 03/31/17 03:25 36.7 71 17 144/87 (106) 95 Room Air 03/31/17 00:00 Room Air 03/30/17 23:47 36.6 67 17 127/79 (95) 96 Room Air 03/30/17 20:00 Room Air 03/30/17 19:36 36.7 69 18 121/65 (83) 95 Room Air 03/30/17 16:55 84 151/93 (112) 03/30/17 16:25 69 122/76 (91) 03/30/17 15:55 71 122/78 (93) 03/30/17 15:40 69 126/75 (92) 03/30/17 15:26 36.3 66 18 123/78 (93) 94 Room Air 03/30/17 15:26 Room Air 03/30/17 14:53 70 16 121/86 (98) 96 Room Air 03/30/17 14:48 71 16 126/86 (99) 96 Room Air 03/30/17 12:36 Room Air Lab Results: Results Past 24 Hours Test 03/30/17 14:34 03/31/17 06:06 Range/Units Kaolin Activated Coagulation Time 252 94-140 SECONDS White Blood Count 4.77 4.8-10.8 K/uL Red Blood Count 4.41 4.2-5.4 M/uL Hemoglobin 13.0 12.0-16.0 g/dL Hematocrit 38.5 37-47 % Mean Corpuscular Volume 87.3 80-100 fL Mean Corpuscular Hemoglobin 29.5 25-34 pg Mean Corpuscular Hemoglobin Concent 33.8 32-36 g/dl Platelet Count 210 130-400 K/uL Mean Platelet Volume 9.3 7.4-10.4 fL Neutrophils (%) (Auto) 51.8 % Lymphocytes (%) (Auto) 35.4 % Monocytes (%) (Auto) 10.7 % Eosinophils (%) (Auto) 1.7 % Basophils (%) (Auto) 0.2 % Neutrophils # (Auto) 2.47 1.4-6.5 K/uL Lymphocytes # (Auto) 1.69 1.2-3.4 K/uL Monocytes # (Auto) 0.51 0.11-0.59 K/uL Eosinophils # (Auto) 0.08 0-0.5 K/uL Basophils # (Auto) 0.01 0-0.2 K/uL RDW Standard Deviation 41.6 36.4-46.3 fL RDW Coefficient of Variation 12.9 11.5-14.5 % Immature Granulocyte % (Auto) 0.2 % Immature Granulocyte # (Auto) 0.01 0.00-0.02 K/uL Sodium Level 142 136-145 mmol/L Potassium Level 3.8 3.5-5.1 mmol/L Chloride Level 111 98-107 mmol/L Carbon Dioxide Level 27 21-32 mmol/L Anion Gap 4.0 3-11 mmol/L Blood Urea Nitrogen 12 7-18 mg/dl Creatinine 0.92 0.60-1.20 mg/dl Est Creatinine Clear Calc Drug Dose 59.3 ml/min Estimated GFR () 70.6 Estimated GFR (Non- 60.9 BUN/Creatinine Ratio 13.4 10-20 Random Glucose 89 70-99 mg/dl Calcium Level 8.2 8.5-10.1 mg/dl
[2017-03-31] MEDS ORDERED: NTRSLP4 SL (11:44)
[2017-03-31] MEDS ORDERED: PLV75 PO (11:44)
[2017-03-31] MEDS ORDERED: METO25TA3 PO (11:44)
[2017-03-31] MEDS ORDERED: LPT40 PO (11:44)
--- NOTE | 2017-03-31 11:45 | Cardiology Follow-Up ---
Subjective General Date of Service: Mar 31, 2017. Pt evaluation today including: conversation w/ patient, physical exam, chart review, lab review, review of studies, conversation w/ industry consultant, review of inpatient medication list History of Present Illness The patient is a 77 year old female seen in follow-up. Feeling well this morning. Reports some mild chest discomfort after eating a granola bar. Denies shortness of breath. Sinus rhythm on telemetry. Offers no complaints this time. Allergies Coded Allergies: No Known Allergies (Unverified , 03/29/17) Social History Smoking Status: Former Smoker Hx Tobacco Use In Past Year?: No Hx Alcohol Use - Type And Amou: Yes (vodka and wine 1-2 drinks daily ) Hx Substance Use - Type And Am: No Problem List Medical Problems: (1) Precordial chest pain Status: Acute Review of Systems Respiratory: No cough, No sputum, No wheezing, No shortness of breath, No dyspnea on exertion, No dyspnea at rest, No hemoptysis Cardiac: No chest pain, No orthopnea, No PND, No edema, No claudication, No palpitations Physical Exam Vital Signs Last Vital Signs Documentation Date Time Temp Pulse Resp B/P (MAP) Pulse Ox O2 Delivery O2 Flow Rate FiO2 03/31/17 08:28 36.8 74 20 145/82 (103) 96 Room Air Physical Exam Constitutional: General Apperance: heathly-appearing, well-nourished Level of Distress: NAD Ambulation: ambulating normally Head: normocephalic, atraumatic ENMT: normal ENT inspection Neck: supple, trachea midline Lungs: Auscultation: breath sounds normal, no wheezing, no rales/crackles, no rhonchi Cardiovascular: Heart Auscultation: RRR, normal S1, normal S2, no murmurs, no rubs, no gallops Peripheral Pulses: Radial Pulse: normal on the right Femoral Pulse: normal on the right Abdomen: Bowel Sounds: normal Inspection & Palpation: soft, non-distended, no tenderness, guarding & rebound Musculoskeletal: normal, normal strength (5/5 throughout) Extremities: no cyanosis, no edema, no clubbing, no ulcers Neurologic: Gait & Station: pertinent finding (no focal deficit) Cranial Nerves: grossly intact Assessment and Plan Assessment and Plan 1. Unstable angina with severe coronary artery disease (95% LAD stenosis) status post drug-eluting stent implantation to the mid LAD 2. HTN - improved 3. Dyslipidemia - tolerating 40 mg atorvastatin 4. Mild to moderate mitral regurgitation with moderate mitral annular calcification and no overt evidence of mitral valve prolapse on current echocardiographic study. 5. IRBBB Plan / Recommendations: I had a long discussion with the patient regarding importance of continuing dual antiplatelet uninterrupted for a minimum of 1 year post PCI. She voiced understanding. I will transition amlodipine to Toprol-XL 25 mg daily. At over statin will be titrated to 80 mg daily. She will also be provided with a prescription for sublingual nitroglycerin at discharge. Post catheterization activity and driving restrictions reviewed as listed below. I will arrange for close cardiology follow-up in 2 weeks. All questions were answered to her satisfaction. Thank you for allow me to take part in the care of your patient. ACTIVITY RECOMMENDATIONS: It is common to feel weak and fatigue for a few days. * Do not drive or operate any motorized equipment for the next three days. * Limit stair usage (2 or 3 trips a day only) for the next three days. * Do not lift anything heavier than 10 pounds for the next three days. * Do not engage in vigorous exercise or any sports for the next five days. * You may shower the day after your procedure, but do not immerse the area for three days. Cleanse the site gently with soap and water. SPECIAL CARE INSTRUCTIONS: * You may replace the pressure dressing or band-aid the morning after the procedure. * After your procedure, it is normal to have a small bruise or small lump at the site. Examine your site daily for any change in the bruise or lump, redness, swelling, drainage or numbness. Notify your doctor if any change. BLEEDING: * If there is a small amount of bleeding at the site, lie down and apply firm pressure with a clean cloth for ten minutes. When the bleeding stops, lie quietly keeping the procedure limb straight for six hours. Notify your doctor as soon as possible. * If the bleeding does not stop after ten minutes or if there is a large amount of bleeding or spurting, call 911 immediately. Continue to lie down and hold firm pressure until help arrives. SKIN IRRITATION: * You may experience some redness and/or swelling in the area where radiation was administered. If any skin irritation occurs, please contact your family physician. Laboratory Results Last 24 Hours Test 03/30/17 14:34 03/31/17 06:06 Kaolin Activated Coagulation Time 252 SECONDS White Blood Count 4.77 K/uL Red Blood Count 4.41 M/uL Hemoglobin 13.0 g/dL Hematocrit 38.5 % Mean Corpuscular Volume 87.3 fL Mean Corpuscular Hemoglobin 29.5 pg Mean Corpuscular Hemoglobin Concent 33.8 g/dl Platelet Count 210 K/uL Mean Platelet Volume 9.3 fL Neutrophils (%) (Auto) 51.8 % Lymphocytes (%) (Auto) 35.4 % Monocytes (%) (Auto) 10.7 % Eosinophils (%) (Auto) 1.7 % Basophils (%) (Auto) 0.2 % Neutrophils # (Auto) 2.47 K/uL Lymphocytes # (Auto) 1.69 K/uL Monocytes # (Auto) 0.51 K/uL Eosinophils # (Auto) 0.08 K/uL Basophils # (Auto) 0.01 K/uL RDW Standard Deviation 41.6 fL RDW Coefficient of Variation 12.9 % Immature Granulocyte % (Auto) 0.2 % Immature Granulocyte # (Auto) 0.01 K/uL Sodium Level 142 mmol/L Potassium Level 3.8 mmol/L Chloride Level 111 mmol/L Carbon Dioxide Level 27 mmol/L Anion Gap 4.0 mmol/L Blood Urea Nitrogen 12 mg/dl Creatinine 0.92 mg/dl Est Creatinine Clear Calc Drug Dose 59.3 ml/min Estimated GFR () 70.6 Estimated GFR (Non- 60.9 BUN/Creatinine Ratio 13.4 Random Glucose 89 mg/dl Calcium Level 8.2 mg/dl
--- NOTE | 2017-03-31 11:48 | Discharge Instructions ---
Discharge Instructions Date of Service Mar 31, 2017. Admission Reason for Admission: Hyperlipidemia, Precordial Chest Pain Discharge Discharge Diagnosis / Problem: 1. Unstable angina S/P cardiac cath with stent placed in LAD Discharge Goals Goal(s): Diagnostic testing, Therapeutic intervention, Prevent Disease Progression Activity Recommendations Activity Limitations: per Instructions/Follow-up section (as per instructions ) . Instructions / Follow-Up Instructions / Follow-Up MEDICATION CHANGES: New medications: 1. Plavix 75 mg daily x at least 1 year and till instructed by cardiology. Have to take it uninterrupted 2. Atorvastatin 80 mg q bedtime 3. Toprol XL 25 mg daily and amlodipine discontinued FOLLOW UP 1. Dr Sutton (PCP) 04/06/17 at 1:15 PM 2. Cardiology follow up as per schedule Current Hospital Diet Patient's current hospital diet: AHA Diet (Heart Healthy) Discharge Diet Recommended Diet: AHA Diet (Heart Healthy), Low Sodium Diet (2gm Na) Pending Studies Studies pending at discharge: no Laboratory Results Lipid Panel Test 03/30/17 04:30 Range/Units Triglycerides Level 232 H 0-150 mg/dl Cholesterol Level 253 H 0-200 mg/dl HDL Cholesterol 50 mg/dl Cholesterol/HDL Ratio 5.1 LDL Cholesterol, Calculated 157 mg/dl Medical Emergencies . Who to Call and When: Medical Emergencies: If at any time you feel your situation is an emergency, please call 911 immediately. . Non-Emergent Contact Non-Emergency issues call your: Primary Care Provider, Cloth [employer]cer . . "Provider Documentation" section prepared by Debbie Carlson. . VTE Core Measure Inpt VTE Proph given/why not?: Enoxaparin (Lovenox)SQ
--- NOTE | 2017-03-31 11:52 | Discharge Summary ---
Discharge Summary Date of Service Mar 31, 2017. Discharge Summary Admission Date: Mar 29, 2017 at 14:36 Discharge Date: Mar 31, 2017 Discharge Disposition: Home Principal Diagnosis: 1. Unstable angina 2. S/P Cardiac cath- LAD stenosis with PCI with stent 2. Dyslipidemia Secondary Diagnoses/Problems: 1. HTN Procedures: Cardiac cath (Right radial) - LAD 95% with 1 BRAD placed on 03/30/17 -Tele monitoring -Echocardiogram -EKG -Troponin serial Consultations: Cardiology Pending Studies/Follow-Up: Instructions / Follow-Up MEDICATION CHANGES: New medications: 1. Plavix 75 mg daily x at least 1 year and till instructed by cardiology. Have to take it uninterrupted 2. Atorvastatin 80 mg q bedtime 3. Toprol XL 25 mg daily and amlodipine discontinued FOLLOW UP 1. Dr Sutton (PCP) 04/06/17 at 1:15 PM 2. Cardiology follow up as per schedule Medication Reconciliation New Medications: Atorvastatin (Atorvastatin Calcium) 40 Mg Tab 80 MG PO DAILY for 30 Days, #60 TAB Metoprolol Succinate (Toprol Xl) 25 Mg Tabcr 25 MG PO DAILY, #30 TAB Clopidogrel Bisulfate (Clopidogrel) 75 Mg Tab 75 MG PO QAM for 30 Days, #30 TAB 2 Refills Nitroglycerin (Nitrostat) 0.4 Mg/1 Tab Subl 0.4 MG SL UD PRN for Chest Pain for 30 Days, #30 TAB 2 Refills Continued Medications: Aspirin (Aspirin Chewable) 81 Mg Chew 81 MG PO DAILY Coenzyme Q10 (Ubidecarenone) (Co Q-10) 75 Mg Cap 1 CAP PO DAILY, CAP Fish Oil ([place]-3) 1 Ea Cap 1 CAP PO DAILY, CAP Red Yeast Rice Extract (Red Yeast Rice) 600 Mg Cap 1 CAP PO DAILY Discontinued Medications: Aspirin (Aspirin Chewable) 81 Mg Chew 324 MG PO UD PRN for CHEST PAIN Admission Information HPI (per Admitting provider): This is a 77 year old female with a PMH of hyperlipidemia, presents with a few month history of dyspnea on exertion and chest pressure with radiation to the back. She has been following with her primary care and was initially given a z- froilan for possible bronchitis. She did have an episode of aspiration on food in January. She states that that has not been an issue since then. She is concerned because her activity level has gone down considerably since this dyspnea and chest pressure began. She states she was scheduled for an outpatient stress test a few weeks from now, but was told by he primary care to come to the ER with chest pain. This morning, she had some chest pain and took four baby aspirin and came to the ER. She currently has no chest pain/dyspnea. Physical Exam (per Admitting): General Appearance: no apparent distress Head: normocephalic, atraumatic Eyes: normal inspection ENT: hearing grossly normal Neck: supple Respiratory/Chest: chest non-tender, lungs clear, normal breath sounds, no respiratory distress, no accessory muscle use Cardiovascular: regular rate, rhythm, no edema, no murmur Abdomen/GI: normal bowel sounds, non tender, soft Extremities/Musculoskelatal: normal inspection, no calf tenderness, normal capillary refill, no pedal edema, normal range of motion Neurologic/Psych: no motor/sensory deficits, alert, normal mood/affect Skin: normal color Lymphatic: no adenopathy Hospital Course This is a 77 year old female with a PMH of hyperlipidemia presents with chest pain and dyspnea on exertion. UNSTABLE ANGINA -Patient presented with chest pain few episodes in past few weeks, decreased activity tolerance, underwent stress echocardiogram here but could got angina and thus went for cardiac cath same day 03/30/17 -S/P Cardiac cath (Right radial) on 03/30- LAD -95% stenosis- One BRAD placed. Doing well post cath. -EKG- no acute changes, Troponin x 3 negative -Continue with ASA. Started Plavix 75 mg (Both to be taken uninterrupted for at least 1 year), Atorvastatin 80 mg, Toprol XL 25 mg and amlodipine discontinued. -Counseling about medical compliance done. HLD started Lipitor, was to start this as outpatient. Dose : 80 mg -Lipid panel- LDL 157. Will need to repeat Lipid panel outpatient in 3 months with goal < 70 DVT ppx Lovenox SQ FULL CODE DISPOSITION Eager to be discharged. Cleared by cardiology for discharge Total time spent on discharge = 35 minutes This includes examination of the patient, discharge planning, medication reconciliation, and communication with other providers. Discharge Instructions Discharge Goals Goal(s): Diagnostic testing, Therapeutic intervention, Prevent Disease Progression Activity Recommendations Activity Limitations: per Instructions/Follow-up section (as per instructions ) . Instructions / Follow-Up Instructions / Follow-Up MEDICATION CHANGES: New medications: 1. Plavix 75 mg daily x at least 1 year and till instructed by cardiology. Have to take it uninterrupted 2. Atorvastatin 80 mg q bedtime 3. Toprol XL 25 mg daily and amlodipine discontinued FOLLOW UP 1. Dr Sutton (PCP) 04/06/17 at 1:15 PM 2. Cardiology follow up as per schedule Current Hospital Diet Patient's current hospital diet: AHA Diet (Heart Healthy) Discharge Diet Recommended Diet: AHA Diet (Heart Healthy), Low Sodium Diet (2gm Na) Pending Studies Studies pending at discharge: no Laboratory Results Lipid Panel Test 03/30/17 04:30 Range/Units Triglycerides Level 232 H 0-150 mg/dl Cholesterol Level 253 H 0-200 mg/dl HDL Cholesterol 50 mg/dl Cholesterol/HDL Ratio 5.1 LDL Cholesterol, Calculated 157 mg/dl Medical Emergencies . Who to Call and When: Medical Emergencies: If at any time you feel your situation is an emergency, please call 911 immediately. . Non-Emergent Contact Non-Emergency issues call your: Primary Care Provider, Superintendent [employer] . . "Provider Documentation" section prepared by Debbie Carlson. . VTE Core Measure Inpt VTE Proph given/why not?: Enoxaparin (Lovenox)SQ
[2017-03-31 12:09] VITALS: BP 145/82; PULSE 74; TEMP 36.8; O2SAT 96
== END 2017-03-31 12:52 | disposition home or self-care (01) ==
LOC: C.EDB 11:25 → C.2T 14:36 → ENRESERV 14:47
PROVIDERS: ADMIT Family Medicine; ATTEND Internal Medicine
DX: I25.10 Atherosclerotic heart disease of native coronary artery without angina pectoris (principal); R07.2 Precordial pain; E78.5 Hyperlipidemia, unspecified; Z86.19 Personal history of other infectious and parasitic diseases; Z79.82 Long term (current) use of aspirin; R06.00 Dyspnea, unspecified; Z87.891 Personal history of nicotine dependence; I10 Essential (primary) hypertension; I34.0 Nonrheumatic mitral (valve) insufficiency
CPT/HCPCS: 93458; C9600